=== PATIENT | female | born 1960 | race Caucasian/White ===

== ENCOUNTER 2020-03-04 21:13 | Emergency (ER) | payer OTHER ==
[~2020-03-04] VITALS: Ht 162.6 cm; Wt 85.8 kg
[2020-03-04] MEDS ORDERED: DULOXETINE HCL20 MG PO (21:22)
[2020-03-04 23:43] LABS: ABSOLUTE NEUTROPHILS 5.6 thou/uL (1.4-8.2); EOSINOPHILS 0.4 % (0.0-3.0); HEMATOCRIT 35.7 % (37.0-47.0); LYMPHOCYTES 32.7 % (24.0-44.0); MCH 27.7 pg (26.0-34.0); MCHC 33.6 g/dL (28.0-37.0); MCV 82.5 fL (80.0-100.0); MONOCYTES 6.6 % (1.0-8.0); PLATELET COUNT 292 thou/uL (150-400); POLYS 59.3 % (36.0-66.0); RBC 4.33 mil/uL (4.20-5.00); WBC 9.4 thou/uL (4.0-11.0)
[2020-03-04 23:49] LABS: CALCIUM 8.5 mg/dL (8.5-10.1); CREATININE 0.8 mg/dL (0.6-1.0); POTASSIUM 3.9 mmol/L (3.5-5.1)
[2020-03-04] MEDS ORDERED: NORCO 5-325 TA1 EAC1 PO (23:59)
[2020-03-04] MEDS ORDERED: SENNA8.8 MG/5 M PO (23:59)
[2020-03-05 00:04] VITALS: BP 110/62
== END 2020-03-05 00:13 | disposition home or self-care (01) ==
LOC: ER 21:13
PROVIDERS: Student in an Organized Health Care Education/Training Program
DX: M54.41 Lumbago with sciatica, right side (principal); E11.9 Type 2 diabetes mellitus without complications; Z79.899 Other long term (current) drug therapy